=== PATIENT | female | born 1980 | race Asian ===

== ENCOUNTER 2020-12-05 12:48 | Emergency (ER) | payer SELFPAY ==
[2020-12-05 15:05] VITALS: BP 119/85
--- NOTE | 2020-12-06 10:18 | Electrocardiograph Report ---
[facility] Test Date: 2020-12-05 Test Time: 15:12:09 Pat Name: ESPINOZA SEPULVEDA Department: Room: Gender: F [employer] Data [employer]: : 1980 Requested By: STAR CALVILLO Order Number: [id number] Reading MD: Felipe Hudson Measurements Intervals [place] Rate: 58 P: 54 TX: 145 QRS: 27 QRSD: 79 T: 17 QT: 416 QTc: 410 Interpretive Statements Sinus bradycardia No previous ECG available for comparison Electronically Signed On 12-06-2020 10:18:07 EDT by Felipe Hudson
== END 2020-12-05 23:33 | disposition left against medical advice (07) ==
LOC: ED 12:48
DX: M54.9 Dorsalgia, unspecified (principal); Z53.21 Procedure and treatment not carried out due to patient leaving prior to being seen by health care provider
CPT/HCPCS: 93005